=== PATIENT | male | born 1965 | race Hispanic/Latino ===

== ENCOUNTER 2021-10-02 11:23 | Emergency (ER) | payer OTHER ==
[~2021-10-02] VITALS: Ht 177.8 cm; Wt 82.6 kg
[2021-10-02 11:31] VITALS: BP 151/131
[2021-10-02] MEDS ORDERED: OXAP600T4 PO (11:52)
== END 2021-10-02 12:03 | disposition home or self-care (01) ==
LOC: EDH 11:23
DX: S86.911A Strain of unspecified muscle(s) and tendon(s) at lower leg level, right leg, initial encounter (principal); E11.9 Type 2 diabetes mellitus without complications; Z98.890 Other specified postprocedural states; X58.XXXA Exposure to other specified factors, initial encounter; Y93.89 Activity, other specified; Y92.89 Other specified places as the place of occurrence of the external cause; Y99.8 Other external cause status
CPT/HCPCS: 29505

== ENCOUNTER 2022-11-25 23:24 | Emergency (ER) | payer OTHER ==
[~2022-11-25] VITALS: Ht 177.8 cm; Wt 80.3 kg
[~2022-11-25 23:24] MED LIST: OXAP600T4 PO
[2022-11-25 23:56] LABS: BASOPHILS % (AUTO) 0.5 % (0.0-5.0); EOSINOPHILS % (AUTO) 0.9 % (0.0-8.0); HEMATOCRIT 47.2 % (42-54); LYMPHOCYTES % (AUTO) 32.3 % (21.0-51.0); MEAN CORPUSCULAR HEMOGLOBIN 27.5 pg (27.0-33.0); MEAN CORPUSCULAR HGB CONC 33.1 g/dL (32.0-36.0); MEAN CORPUSCULAR VOLUME 83.2 fL (79-99); MONOCYTES % (AUTO) 6.3 % (3.0-13.0); NEUTROPHILS % (AUTO) 59.7 % (40.0-77.0); PLATELET COUNT (AUTO) 182 K/uL (130-400); RED BLOOD CELL COUNT(AUTO) 5.67 MIL/uL (4.50-6.20); RED CELL DISTRIBUTION WIDTH 13.4 % (11.0-15.5); WHITE BLOOD COUNT (AUTO) 7.8 K/uL (4.8-10.8)
[2022-11-26] MEDS ORDERED: MORPHINE 2 MG SYG IVP ONE
[2022-11-26] MEDS ORDERED: ONDANSETRON 4MG INJ IVP ONE
[2022-11-26 00:06] LABS: CREATININE 0.8 mg/dL (0.5-1.5); POTASSIUM 3.6 mmol/L (3.5-5.1)
[2022-11-26 00:15] LABS: TOTAL PROTEIN, SERUM 7.6 g/dL (6.0-8.3)
[2022-11-26] MEDS ORDERED: IOHEXOL-350 75 ML VIAL IV ONE (00:37)
[2022-11-26] MEDS ORDERED: IBUP-1493 PO (01:50)
[2022-11-26] MEDS ORDERED: CYCL-309 PO (01:50)
[2022-11-26 02:00] VITALS: BP 139/80
== END 2022-11-26 02:00 | disposition home or self-care (01) ==
LOC: EDH 23:24
DX: M54.50 Low back pain, unspecified (principal); E11.9 Type 2 diabetes mellitus without complications; E78.00 Pure hypercholesterolemia, unspecified
CPT/HCPCS: 99285; 72125; 96374; 71045; 96375; 84484; 80053; 85025; 36415; 71260; 72128; 93005; J2270; J2405; Q9967